=== PATIENT | male | born 1950 | race Caucasian/White ===

== ENCOUNTER 2019-01-25 07:18 | Emergency (ER) | payer OTHER ==
[2019-01-25] MEDS ORDERED: METOPROLOL TARTRATE 1 MG/ML 5ML VIAL IV ONE (07:49)
[2019-01-25] MEDS ORDERED: HYDROCODONE/ACETAMINOPHEN 10/325 MG TAB ONE (08:07)
== END 2019-01-25 09:48 | disposition home or self-care (01) ==
LOC: EDH 07:18
DX: S90.31XA Contusion of right foot, initial encounter (principal); I48.91 Unspecified atrial fibrillation; E78.00 Pure hypercholesterolemia, unspecified; I10 Essential (primary) hypertension; Z72.0 Tobacco use; Z96.653 Presence of artificial knee joint, bilateral; X58.XXXA Exposure to other specified factors, initial encounter; Y93.89 Activity, other specified; Y92.096 Garden or yard of other non-institutional residence as the place of occurrence of the external cause; Y99.8 Other external cause status
CPT/HCPCS: 73630; 96374; 99284; J3490

== ENCOUNTER 2019-12-27 10:15 | Inpatient (IN) | payer OTHER ==
[~2019-12-27] VITALS: Ht 175.3 cm; Wt 75.3 kg
[~2019-12-27 10:15] MED LIST: APIX5TAB PO; ATOR20TA65 PO; HYDR-4068 PO; LISI30TA4 PO
[2019-12-27 11:36] LABS: BASOPHILS % (AUTO) 0.8 % (0.0-5.0); HEMATOCRIT 46.6 % (42-54); LYMPHOCYTES % (AUTO) 27.9 % (21.0-51.0); MEAN CORPUSCULAR HEMOGLOBIN 30.1 pg (27.0-33.0); MEAN CORPUSCULAR HGB CONC 32.8 g/dL (32.0-36.0); MEAN CORPUSCULAR VOLUME 91.6 fL (79-99); NEUTROPHILS % (AUTO) 63.1 % (40.0-77.0); PLATELET COUNT (AUTO) 199 K/uL (130-400); RED BLOOD CELL COUNT(AUTO) 5.09 MIL/uL (4.50-6.20); RED CELL DISTRIBUTION WIDTH 14.1 % (11.0-15.5); WHITE BLOOD COUNT (AUTO) 9.2 K/uL (4.8-10.8)
[2019-12-27 12:06] LABS: ALBUMIN 3.9 g/dL (3.5-5.0); BILIRUBIN,TOTAL 0.6 mg/dL (0.2-1.0); CREATININE 0.8 mg/dL (0.5-1.5); POTASSIUM 3.6 mmol/L (3.5-5.1); TOTAL PROTEIN, SERUM 7.6 g/dL (6.0-8.3)
[2019-12-27 12:09] LABS: INR 0.99 (0.85-1.15); PARTIAL THROMBOPLASTIN TIME 29.2 SEC (26.3-35.5); PROTHROMBIN TIME 10.7 SEC (9.6-11.6)
[2019-12-29 12:15] VITALS: BP 133/88
[2019-12-29] MEDS ORDERED: VITAMIN B12 PO (13:48)
[2019-12-29] MEDS ORDERED: DIGO125T71 PO (13:48)
[2019-12-29] MEDS ORDERED: PREG100C55 PO (13:48)
[2019-12-29] MEDS ORDERED: DILT180C86 PO (13:48)
[2019-12-29] MEDS ORDERED: DULO30CA52 PO (13:48)
[2019-12-30] VITALS (24 sets, daily range): BP systolic 111–154; BP diastolic 51–90
[2019-12-30] MEDS ORDERED: SODIUM CHLORIDE 0.9% 500ML 500 ML IV SCH (05:00)
[2019-12-30] MEDS ORDERED: CEFAZOLIN SODIUM 1 GM VIAL IVP SCH (06:00)
[2019-12-30] MEDS ORDERED: MIDAZOLAM HCL 1 MG/ML 2ML VIAL ONE ×2 (09:40→12:56)
[2019-12-30] MEDS ORDERED: FENTANYL CITRATE PF 50 MCG/1 ML 2ML VIAL ONE (09:41)
[2019-12-30] MEDS ORDERED: EPHEDRINE SULFATE 50 MG/ML AMPULE ONE (09:49)
--- NOTE | 2019-12-30 10:04 | NUR ---
SKIN RIGHT STUMP WITH DRESSING DRY AND INTACT Addendum: 12/30/19 at 1004 by DESIREE KITCHEN RN Amended: Links added.
[2019-12-30] MEDS ORDERED: DEXAMETHASONE SOD PHOSPHATE 10MG/ML 1ML VIAL ONE (11:39)
[2019-12-30] MEDS ORDERED: ONDANSETRON HCL 4 MG/2 ML VIAL ONE (11:41)
[2019-12-30] MEDS ORDERED: MEPERIDINE-PF 25 MG/ML SYG ONE ×2 (12:48→13:01)
--- NOTE | 2019-12-30 13:50 | NUR ---
PROCEDURE REPORT RECEIVED FROM SAMUEL RN (PACU). PATIENT S/P RIGHT STUMP REVISION BY DR. RIVAS. DRESSING DRY AND INTACT. PATIENT STABLE AT THIS TIME.
[2019-12-30] MEDS ORDERED: ONDANSETRON HCL 4 MG/2 ML VIAL IVP PRN (15:45)
[2019-12-30] MEDS: ACETAMINOPHEN-CODEINE 300/30MG TAB PO PRN (16:10)
[2019-12-30] MEDS: TRAMADOL HCL 50 MG TABLET PO SCH ×2 (18:14→21:48)
[2019-12-30] MEDS: HYDROMORPHONE HCL 0.5 MG/0.5 ML ML IVP PRN ×2 (19:04→22:27)
[2019-12-30] MEDS: FAMOTIDINE/PF 20 MG/2 ML VIAL IV SCH (21:47)
[2019-12-31 00:41] VITALS: BP 92/56
[2019-12-31] MEDS: HYDROMORPHONE HCL 0.5 MG/0.5 ML ML IVP PRN ×2 (02:13→06:35)
[2019-12-31 04:37] VITALS: BP 111/51
[2019-12-31] MEDS: TRAMADOL HCL 50 MG TABLET PO SCH ×4 (06:11→23:49)
[2019-12-31 06:29] LABS: HEMATOCRIT 37.9 % (42-54); MEAN CORPUSCULAR HEMOGLOBIN 30.2 pg (27.0-33.0); MEAN CORPUSCULAR HGB CONC 32.7 g/dL (32.0-36.0); MEAN CORPUSCULAR VOLUME 92.4 fL (79-99); RED BLOOD CELL COUNT(AUTO) 4.1 MIL/uL (4.50-6.20); WHITE BLOOD COUNT (AUTO) 9.7 K/uL (4.8-10.8)
[2019-12-31 06:38] LABS: POTASSIUM 3.9 mmol/L (3.5-5.1)
[2019-12-31 08:00] VITALS: BP 129/79
[2019-12-31] MEDS: FAMOTIDINE/PF 20 MG/2 ML VIAL IV SCH ×2 (09:12→20:42)
[2019-12-31] MEDS: ACETAMINOPHEN-CODEINE 300/30MG TAB PO PRN ×2 (09:12→15:48)
[2019-12-31 11:24] VITALS: BP 120/51
[2019-12-31] MEDS: DILTIAZEM HCL 180 MG CAP.SR.24H PO SCH (12:12)
[2019-12-31] MEDS: DULOXETINE HCL 30 MG CAP PO PRN (12:42)
[2019-12-31] MEDS: PREGABALIN 100 MG CAPSULE PO PRN (12:42)
[2019-12-31] MEDS: HYDROCODONE/ACETAMINOPHEN 10/325 MG TAB PO PRN ×2 (12:42→20:44)
[2019-12-31] MEDS: APIXABAN 5 MG TABLET PO SCH ×2 (12:59→20:43)
[2019-12-31] MEDS: LISINOPRIL 10 MG TABLET PO SCH ×2 (13:01→20:43)
[2019-12-31] MEDS: CYANOCOBALAMIN (VITAMIN B-12) 1,000 MCG TABLET PO SCH (13:01)
[2019-12-31 15:59] VITALS: BP 152/71
[2019-12-31] MEDS ORDERED: DIGOXIN 125 MCG TABLET PO SCH (16:00)
[2019-12-31] MEDS ORDERED: ATORVASTATIN CALCIUM 20 MG TABLET PO SCH (21:00)
[2020-01-01 00:20] VITALS: BP 149/79
[2020-01-01] MEDS: HYDROCODONE/ACETAMINOPHEN 10/325 MG TAB PO PRN ×2 (02:50→08:42)
[2020-01-01 04:06] VITALS: BP 140/79
[2020-01-01] MEDS: TRAMADOL HCL 50 MG TABLET PO SCH (05:49)
[2020-01-01 06:14] LABS: BASOPHILS % (AUTO) 0.3 % (0.0-5.0); EOSINOPHILS % (AUTO) 0.4 % (0.0-8.0); HEMATOCRIT 36.4 % (42-54); LYMPHOCYTES % (AUTO) 28.2 % (21.0-51.0); MEAN CORPUSCULAR HEMOGLOBIN 29.9 pg (27.0-33.0); MEAN CORPUSCULAR HGB CONC 32.7 g/dL (32.0-36.0); MEAN CORPUSCULAR VOLUME 91.5 fL (79-99); MONOCYTES % (AUTO) 7.6 % (3.0-13.0); NEUTROPHILS % (AUTO) 63.2 % (40.0-77.0); PLATELET COUNT (AUTO) 174 K/uL (130-400); RED BLOOD CELL COUNT(AUTO) 3.98 MIL/uL (4.50-6.20); WHITE BLOOD COUNT (AUTO) 11.4 K/uL (4.8-10.8)
[2020-01-01 06:53] LABS: ALANINE AMINOTRANSFERASE 21 U/L (12-78); ALBUMIN 3.3 g/dL (3.5-5.0); ASPARTATE AMINOTRANSFERASE 17 U/L (10-37); BILIRUBIN,TOTAL 0.6 mg/dL (0.2-1.0); CARBON DIOXIDE 33 mmol/L (21-32); CHLORIDE 106 mmol/L (101-111); CREATININE 0.8 mg/dL (0.5-1.5); DIGOXIN < 0.20 ng/mL (0.50-2.00); GLOMERULAR FILTR. RATE CALC 102 mL/min (>60); GLUCOSE,RANDOM 105 mg/dL (70-105); SODIUM SERUM 144 mmol/L (136-145); TOTAL PROTEIN, SERUM 6.3 g/dL (6.0-8.3); UREA NITROGEN, BLOOD 14 mg/dL (7-18)
[2020-01-01] MEDS ORDERED: LIDOCAINE HCL-MPF 1% 2ML VIAL IV PRN (07:15)
[2020-01-01] MEDS ORDERED: POTASSIUM CHLORIDE 10MEQ/100ML 100 ML IV PRN (07:15)
[2020-01-01] MEDS ORDERED: POTASSIUM CHLORIDE 10% ELIXIR 20 MEQ/15 ML UDCUP PO PRN (07:15)
[2020-01-01 08:00] VITALS: BP 143/94
[2020-01-01] MEDS: CYANOCOBALAMIN (VITAMIN B-12) 1,000 MCG TABLET PO SCH (08:42)
[2020-01-01] MEDS: APIXABAN 5 MG TABLET PO SCH (08:42)
[2020-01-01] MEDS: LISINOPRIL 10 MG TABLET PO SCH (08:44)
[2020-01-01] MEDS: DILTIAZEM HCL 180 MG CAP.SR.24H PO SCH (08:44)
[2020-01-01] MEDS: POTASSIUM CHLORIDE 20 MEQ ERTAB PO PRN ×3 (08:45→11:55)
[2020-01-01] MEDS: FAMOTIDINE/PF 20 MG/2 ML VIAL IV SCH (08:45)
[2020-01-01] MEDS: DULOXETINE HCL 30 MG CAP PO PRN (08:49)
[2020-01-01] MEDS: PREGABALIN 100 MG CAPSULE PO PRN (10:44)
[2020-01-01 12:31] VITALS: BP 136/89
--- NOTE | 2020-01-01 13:00 | NUR ---
cm note spoke to pt and states has [facility] in place,choice letter obtained. nurse will call report for new orders on wound care. to [phone] faxed clinical update to [phone]
--- NOTE | 2020-01-01 14:15 | NUR ---
WAS INFORMED IN AM BY [place] OF PATIENT,REGARDING CONCERNED WITH WANTING TO GET TESTED FOR COVID AGAIN DUE TO HER BEING ON CHEMO AND RADIATION AND CURRENT CROSSING FLAGMAN FOR PATIENT EXPLAINED TO HER BOTH RAPID AND PCR WERE NEGATIVE FROM STAY . PER INSISTED ON HIM GETTING TESTED AGAIN. LET HER KNOW IF TESTED PATIENT WILL NEED TO WAIT FOR RESULTS AND PATIENT IS WANTING TO GO HOME ALREADY , NO SYMPTOMS . ALSO BRANDON SAMSON .PER CLAY MODELER AJ NO NEED TO RETEST, PER SURGERY HUDSON CABEZAS NO NEED WEL. HUDSON CABEZAS EXPLAINED TO PATIENT ON CARE OF INSCISION AND TEST FOR COVID AGAIN NOT NEEDED DUE TO NO SYMPTOMS . ALSO PER RECHECK AFTER COVERAGE OF POTASSIUM NO NEED. PER OK FOR NOT NEEDING TEST AND SHE WILL TAKE [facility] TO [facility] TO GET [facility] IF NEEDED. REPORT GIVEN TO HOME HEALTH NURSE VIKAS . DRESSING PROVIDED TO LANDON. WILL CONT DAILY DRY DRESSING CHANGES
== END 2020-01-01 13:20 | disposition home health service (06) | DRG 908 ==
LOC: EDSTATUS 10:15 → DAHIP 12-30 09:00 → EDSTATUS 12-30 10:15 → 4CH 12-30 14:01
PROVIDERS: ADMIT Student in an Organized Health Care Education/Training Program; ATTEND Student in an Organized Health Care Education/Training Program
PROC: 0QBB0ZZ Excision of Right Lower Femur, Open Approach (ICD-10-PCS; 2019-12-30)
PROC: 0QUB0KZ Supplement Right Lower Femur with Nonautologous Tissue Substitute, Open Approach (ICD-10-PCS; principal; 2019-12-30 11:39)
DX: T81.89XA Other complications of procedures, not elsewhere classified, initial encounter (principal); M86.8X8 Other osteomyelitis, other site; F17.210 Nicotine dependence, cigarettes, uncomplicated; Z20.828 Contact with and (suspected) exposure to other viral communicable diseases; Z89.512 Acquired absence of left leg below knee; Z82.49 Family history of ischemic heart disease and other diseases of the circulatory system; Z82.0 Family history of epilepsy and other diseases of the nervous system
CPT/HCPCS: 36415; 80048; 80053; 80162; 85025; 85027; 85610; 85730; 87070; 87076; 87205; 87426; 93005; G0378; J0690; J1100; J1170; J2175; J2250; J2405; J3010; J3490; J7030; J7040; J7120; U0003

== ENCOUNTER → 2020-04-26 | Outpatient (CLI) | payer OTHER ==
[~2020-04-26] MED LIST changes: +DIGO125T71 PO; +DILT180C86 PO; +DULO30CA52 PO; +PREG100C55 PO; +VITAMIN B12 PO
== END | disposition home or self-care (01) ==
LOC: RAH 14:27
PROVIDERS: ATTEND Physician Assistant
DX: I74.3 Embolism and thrombosis of arteries of the lower extremities (principal); M79.89 Other specified soft tissue disorders; I72.4 Aneurysm of artery of lower extremity
CPT/HCPCS: 93926

== ENCOUNTER → 2021-04-22 | Outpatient (CLI) | payer OTHER | END | disposition home or self-care (01) | LOC: SHCH 14:24 | PROVIDERS: ATTEND Internal Medicine | DX: I08.2 Rheumatic disorders of both aortic and tricuspid valves (principal); I10 Essential (primary) hypertension; I48.91 Unspecified atrial fibrillation | CPT/HCPCS: 93306; 93356 ==

== ENCOUNTER → 2021-10-16 | Outpatient (CLI) | payer OTHER | END | disposition home or self-care (01) | LOC: SHCH 08:20 | PROVIDERS: ATTEND Internal Medicine | DX: I48.0 Paroxysmal atrial fibrillation (principal); E11.9 Type 2 diabetes mellitus without complications; I10 Essential (primary) hypertension | CPT/HCPCS: 93306 ==

== ENCOUNTER → 2022-07-14 | Outpatient (CLI) | payer OTHER ==
[2022-07-11 11:30] VITALS: BP 101/64
[2022-07-11 12:17] LABS: HEMATOCRIT 39.8 % (42-54); MEAN CORPUSCULAR HEMOGLOBIN 30.7 pg (27.0-33.0); MEAN CORPUSCULAR HGB CONC 31.4 g/dL (32.0-36.0); MEAN CORPUSCULAR VOLUME 97.8 fL (79-99); RED BLOOD CELL COUNT(AUTO) 4.07 MIL/uL (4.50-6.20); RED CELL DISTRIBUTION WIDTH 16.3 % (11.0-15.5); WHITE BLOOD COUNT (AUTO) 8.6 K/uL (4.8-10.8)
[2022-07-11 12:31] LABS: POTASSIUM 4.3 mmol/L (3.5-5.1)
[2022-07-11 12:37] LABS: INR 1.08 (0.85-1.15); PROTHROMBIN TIME 11.7 SEC (9.6-11.6)
[2022-07-11 12:38] LABS: CREATININE 0.8 mg/dL (0.5-1.5); PARTIAL THROMBOPLASTIN TIME 27.4 SEC (26.3-35.5)
[~2022-07-14] VITALS: Ht 172.7 cm; Wt 68.9 kg
[~2022-07-14] MED LIST changes: +0.9%NACL 1000ML 1,000 ML IV ONE; +AEC81 PO; -ATOR20TA65 PO; +CEFAZOLIN SODIUM 2 GM VIAL IVPB PRN; +CILO50TA2 PO; +CLON0.1T PO; -DIGO125T71 PO; -DULO30CA52 PO; -HYDR-4068 PO; +METF-444 PO; +METO-409 PO; +MIRT-93 PO; -PREG100C55 PO; +SIMV-46 PO; -VITAMIN B12 PO
[2022-07-14 10:47] VITALS: BP 135/85
== END | disposition home or self-care (01) ==
LOC: EDSTATUS 07-11 16:00 → UNDOADMIN 10:20 → DAHIP 10:20 → EDSTATUS 16:00 → DAH 17:04
PROVIDERS: ATTEND Thoracic Surgery (Cardiothoracic Vascular Surgery)
DX: Z01.810 Encounter for preprocedural cardiovascular examination (principal); Z20.822 Contact with and (suspected) exposure to COVID-19; E11.51 Type 2 diabetes mellitus with diabetic peripheral angiopathy without gangrene; I10 Essential (primary) hypertension; E11.9 Type 2 diabetes mellitus without complications; E66.9 Obesity, unspecified; F17.200 Nicotine dependence, unspecified, uncomplicated; Z98.890 Other specified postprocedural states; Z53.8 Procedure and treatment not carried out for other reasons
CPT/HCPCS: 87426; 80048; 85027; 85610; 85730; 86850 ×2; 86900 ×2; 86901 ×2; 36415 ×2; 93005; 71045; 82948; A6260; J7030

== ENCOUNTER 2022-11-11 08:09 | Day surgery (SDC) | payer OTHER ==
[~2022-11-11 08:09] MED LIST changes: -0.9%NACL 1000ML 1,000 ML IV ONE; -CEFAZOLIN SODIUM 2 GM VIAL IVPB PRN; +DILT180C77 PO; -DILT180C86 PO
[2022-11-11] MEDS ORDERED: PROPOFOL 10 MG/ML 20ML VIAL IV ONE (08:38)
[2022-11-11 08:40] VITALS: BP 122/56; PULSE 74; RESP 16
[2022-11-11] MEDS: 0.9%NACL 1000ML 1,000 ML IV ONE ×2 (08:41→10:39)
[2022-11-11] MEDS ORDERED: LISI30TA4 PO (09:00)
[2022-11-11 09:43] VITALS: BP 97/74; PULSE 83; RESP 16
[2022-11-11 09:48] VITALS: BP 115/81; PULSE 89; RESP 15
[2022-11-11 09:53] VITALS: BP 109/84; PULSE 85; RESP 16
[2022-11-11 09:58] VITALS: BP 119/80; PULSE 92; RESP 15
[2022-11-11 10:13] VITALS: BP 110/81; PULSE 85; RESP 16
== END 2022-11-11 10:15 | disposition home or self-care (01) ==
LOC: ENDO 08:09 → DAH 08:09 → ENDO 10:15
PROVIDERS: ATTEND Internal Medicine Gastroenterology
DX: R13.10 Dysphagia, unspecified (principal); Z20.822 Contact with and (suspected) exposure to COVID-19; R10.13 Epigastric pain; K22.2 Esophageal obstruction; K44.9 Diaphragmatic hernia without obstruction or gangrene; K22.70 Barrett's esophagus without dysplasia; K29.00 Acute gastritis without bleeding; K80.20 Calculus of gallbladder without cholecystitis without obstruction; K76.0 Fatty (change of) liver, not elsewhere classified; I10 Essential (primary) hypertension; E11.51 Type 2 diabetes mellitus with diabetic peripheral angiopathy without gangrene; F17.200 Nicotine dependence, unspecified, uncomplicated; E78.5 Hyperlipidemia, unspecified; I48.91 Unspecified atrial fibrillation; F32.A Depression, unspecified; Z98.890 Other specified postprocedural states; Z82.49 Family history of ischemic heart disease and other diseases of the circulatory system; Z83.3 Family history of diabetes mellitus; Z83.438 Family history of other disorder of lipoprotein metabolism and other lipidemia; Z79.01 Long term (current) use of anticoagulants; Z79.02 Long term (current) use of antithrombotics/antiplatelets; Z79.899 Other long term (current) drug therapy
CPT/HCPCS: 82948; 88305; 88342; 43239; 43248; J7030 ×2; J2704; A4620; A4215 ×2; A4223; A4657 ×3; A7002; A4222; A4221; A4663; A4606

== ENCOUNTER 2022-11-21 19:15 | Emergency (ER) | payer OTHER ==
[~2022-11-21] VITALS: Ht 175.3 cm; Wt 68.0 kg
[~2022-11-21 19:15] MED LIST changes: -AEC81 PO; -MIRT-93 PO
[2022-11-21] MEDS ORDERED: MORPHINE 4 MG SYG IVP ONE (20:30)
[2022-11-21] MEDS ORDERED: ONDANSETRON 4MG INJ IVP ONE (20:30)
[2022-11-21] MEDS ORDERED: 0.9%NACL 1000ML 1,000 ML IV SCH (20:30)
[2022-11-21] MEDS ORDERED: IOHEXOL 350 MG/ML 100ML INFUS..BTL IV ONE (20:47)
[2022-11-21 20:54] LABS: BASOPHILS % (AUTO) 0.7 % (0.0-5.0); EOSINOPHILS % (AUTO) 0.8 % (0.0-8.0); HEMATOCRIT 41.9 % (42-54); LYMPHOCYTES % (AUTO) 29.3 % (21.0-51.0); MEAN CORPUSCULAR HGB CONC 32.9 g/dL (32.0-36.0); MEAN CORPUSCULAR VOLUME 91.1 fL (79-99); MONOCYTES % (AUTO) 9.3 % (3.0-13.0); NEUTROPHILS % (AUTO) 59.7 % (40.0-77.0); PLATELET COUNT (AUTO) 227 K/uL (130-400); RED CELL DISTRIBUTION WIDTH 17.3 % (11.0-15.5); WHITE BLOOD COUNT (AUTO) 12.3 K/uL (4.8-10.8)
[2022-11-21 20:55] LABS: APPEARANCE,URINE CLEAR (CLEAR); BILIRUBIN,URINE NEGATIVE (NEGATIVE); COLOR,URINE LIGHT-YELLOW (YELLOW); GLUCOSE, URINE (UA) NEGATIVE (NEGATIVE); KETONES,URINE NEGATIVE (NEGATIVE); LEUKOCYTE ESTERASE ,URINE 500 Leu/uL (NEGATIVE); NITRATE,URINE NEGATIVE (NEGATIVE); OCCULT BLOOD,URINE NEGATIVE (NEGATIVE); PH,URINE 5.5 (5.0-8.0); PROTEIN,URINE NEGATIVE (NEGATIVE); UROBILINOGEN,URINE 0.2 mg/dL (0.2-1.0)
[2022-11-21 21:00] LABS: BACTERIA,URINE MOD /HPF (None Seen); CALCIUM OXALATE CRYSTALS,UR RARE /LPF (None Seen); MUCUS,URINE RARE LPF (None Seen); SQUAMOUS EPITHELIAL CELL,UR RARE /HPF (0-2); WBC,URINE 26-50 /HPF (0-1)
[2022-11-21 21:09] LABS: ALBUMIN 3.7 g/dL (3.5-5.0); TOTAL PROTEIN, SERUM 7.1 g/dL (6.0-8.3)
[2022-11-21] MEDS ORDERED: FENTANYL CITRATE PF 50 MCG/1 ML 2ML VIAL IVP ONE ×2 (21:30→23:30)
[2022-11-21] MEDS ORDERED: LACTATED RINGERS 1000ML 1,000 ML IV SCH (23:30)
[2022-11-22] MEDS ORDERED: METOPROLOL TARTRATE 1 MG/ML 5ML VIAL IV ONE ×2 (00:30→05:00)
[2022-11-22] MEDS ORDERED: SIMV-43 PO (00:41)
[2022-11-22] MEDS ORDERED: LISI30TA4 PO (00:41)
[2022-11-22] MEDS ORDERED: APIX5TAB PO (00:41)
[2022-11-22] MEDS ORDERED: METO-408 PO (00:41)
[2022-11-22] MEDS ORDERED: CLON0.1T PO (00:41)
[2022-11-22] MEDS ORDERED: CILO50TA2 PO (00:41)
[2022-11-22] MEDS ORDERED: METF-444 PO (00:41)
[2022-11-22] MEDS ORDERED: [UNRECOGNIZED DRUG - CODE] PO (00:41)
[2022-11-22] MEDS ORDERED: DILT90TA2 PO (00:41)
[2022-11-22] MEDS ORDERED: HYDROMORPHONE 2 MG VIAL (2MG/ML) IVP ONE (01:00)
[2022-11-22] MEDS ORDERED: HYDROMORPHONE 1 MG INJ ONE ×2 (01:22→04:00)
[2022-11-22] MEDS ORDERED: LACTATED RINGERS 1000ML 1,000 ML IV SCH ×2 (01:30→05:00)
[2022-11-22] MEDS ORDERED: HYDROMORPHONE 1 MG INJ IVP ONE (04:30)
[2022-11-22] MEDS ORDERED: ZOSYN 3.375GM +NS 50ML IVPB ONE (05:00)
[2022-11-22 05:16] VITALS: BP 117/91
== END 2022-11-22 05:34 | disposition short-term general hospital (02) ==
LOC: EDH 19:15
DX: K44.0 Diaphragmatic hernia with obstruction, without gangrene (principal); I10 Essential (primary) hypertension; E78.00 Pure hypercholesterolemia, unspecified; I48.91 Unspecified atrial fibrillation; Z79.899 Other long term (current) drug therapy; Z20.822 Contact with and (suspected) exposure to COVID-19
CPT/HCPCS: 99285; 71260; 96361; 96375 ×2; 71045; 87635; 84484; 80053; 83690; 85025; 87077; 87088; 87186; 81001; 36415; 74177; 93005 ×2; 96376 ×2; 96365; C9803; J3010; J7030; J2405; J2270; Q9967; J3490; J1170 ×3; J2543

== ENCOUNTER → 2023-01-23 | Outpatient (CLI) | payer OTHER ==
[~2023-01-23] MED LIST changes: +DILT90TA2 PO; +METO-408 PO; +SIMV-43 PO; +[UNRECOGNIZED DRUG - CODE] PO
== END | disposition home or self-care (01) ==
LOC: SHCH 14:36
PROVIDERS: ATTEND Internal Medicine Cardiovascular Disease
DX: I35.0 Nonrheumatic aortic (valve) stenosis (principal); I11.9 Hypertensive heart disease without heart failure; I48.0 Paroxysmal atrial fibrillation; E11.9 Type 2 diabetes mellitus without complications; E78.5 Hyperlipidemia, unspecified
CPT/HCPCS: 93306